=== PATIENT | female | born 1950 | race American Indian/Alaskan Native ===

== ENCOUNTER 2016-06-27 15:13 | Outpatient (CLI) | payer MEDICARE, OTHER ==
--- NOTE | 2016-06-27 16:14 | Mammography Report ---
BILATERAL DIGITAL SCREENING MAMMOGRAM with CAD : 06/27/16 15:13:00 CLINICAL: Routine screening. COMPARISON:06/27/15 and annual mammograms back to 04/23/12 FINDINGS: The breasts are heterogeneously dense, which may obscure small masses. No mass, architectural distortion or suspicious calcifications. IMPRESSION: No mammographic evidence of malignancy. BI-RADS CATEGORY: 2 -- Benign RECOMMENDATION: Routine mammographic screening in one year. COMMENT: Patient follow-up letters are generated by our [employer] application.
== END 2016-06-27 15:14 | disposition home or self-care (01) ==
LOC: SPVWC 15:13
PROVIDERS: ATTEND Family Medicine
DX: Z12.31 Encounter for screening mammogram for malignant neoplasm of breast (principal)
CPT/HCPCS: 77067; G0202

== ENCOUNTER 2017-07-13 15:51 | Outpatient (CLI) | payer MEDICARE, OTHER ==
--- NOTE | 2017-07-14 14:39 | Mammography Report ---
BILATERAL DIGITAL SCREENING MAMMOGRAM with CAD: 07/13/17 15:51:00 CLINICAL: Routine screening. COMPARISON:06/27/16 FINDINGS: The breasts are heterogeneously dense, which may obscure small masses. Bilateral circumscribed densities require additional imaging.No architectural distortion or suspicious calcifications. IMPRESSION: Bilateral circumscribed asymmetries requiring further workup. BI-RADS CATEGORY: 0 -- Additional Imaging Evaluation Required RECOMMENDATION: Recall for bilateral outer breast ultrasound to confirm bilateral cysts. ACR BI-RADS MAMMOGRAPHIC CODES: 0 = Needs additional imaging evaluation; 1 = Negative; 2 = Benign; 3 = Probably benign; 4 = Suspicious; 5 = Malignant; 6 = Known biopsy-proven malignancy COMMENT: 1. Dense breast tissue, i.e., adenosis, fibrocystic changes, etc., may obscure an underlying neoplasm. 2. Approximately 10% of cancers are not detected with mammography. 3. A negative mammography report should not delay biopsy if a clinically suspicious mass is present. COMMENT: Patient follow-up letters are generated via our [employer] application.
== END 2017-07-13 15:52 | disposition home or self-care (01) ==
LOC: SPVWC 15:51
PROVIDERS: ATTEND Family Medicine
DX: Z12.31 Encounter for screening mammogram for malignant neoplasm of breast (principal)
CPT/HCPCS: 77067

== ENCOUNTER 2017-08-11 15:03 | Outpatient (CLI) | payer MEDICARE, OTHER ==
--- NOTE | 2017-08-11 15:56 | Ultrasound Report ---
BILATERAL BREAST ULTRASOUND: 08/11/17 15:03:00 CLINICAL: Recall to evaluate bilateral circumscribed masses on screening mammogram. COMPARISON: 07/13/17 mammogram. FINDINGS: Ultrasound of the right breast demonstrated several benign cysts and no solid mass. A cyst at 9 o'clock 6 cm from the nipple measures 1.4 x 1.2 x 1.7 cm. A cyst at 10 o'clock 7 cm from the nipple measures 8 x 4 x 7 mm and a cyst at 10 o'clock 6 cm from the nipple measures 1.0 x 0.6 x 1.0 cm. Ultrasound of the left breast demonstrated several benign cysts and no solid mass. A cyst at 4 o'clock 4 cm from the nipple measures 1.3 x 0.7 x 1.2 cm and a cyst at 4 o'clock 3 cm from the nipple measures 1.3 x 0.9 x 1.4 cm. A cyst at 2 o'clock 4 cm from the nipple measures 6 x 2 x 8 mm and a cyst at 12 o'clock near the areola measures 5 x 2 x 5 mm. IMPRESSION: Bilateral benign cysts. Recommend routine in a traffic screening. BI-RADS 2 - - Benign
== END 2017-08-11 15:04 | disposition home or self-care (01) ==
LOC: SPVWC 15:03
PROVIDERS: ATTEND Family Medicine
DX: N60.01 Solitary cyst of right breast (principal); N60.02 Solitary cyst of left breast